=== PATIENT | male | born 1995 | race Caucasian/White ===

== ENCOUNTER 2021-04-12 08:48 | Emergency (ER) | payer BC ==
[~2021-04-12] VITALS: Ht 180.3 cm; Wt 61.0 kg
[2021-04-12] MEDS ORDERED: IBUPROFEN 600MG TABLET PO ONE (10:00)
[2021-04-12] MEDS ORDERED: LIDOCAINE 5% PATCH TOP SCH (10:00)
[2021-04-12 10:57] LABS: BASOPHILS % 0.4 % (0.0-2.0); EOSINOPHILS % 0.7 % (0.0-5.0); HEMATOCRIT. 46.7 % (42.0-52.0); HEMOGLOBIN. 16.1 g/dL (14.0-18.0); LYMPHOCYTES % 31.7 % (20.0-50.0); MEAN CORPUSCULAR HEMOGLOBIN 31.3 pg (28.0-32.0); MEAN CORPUSCULAR VOLUME 90.7 fL (80.0-94.0); MEAN PLATELET VOLUME 7.4 fl (7.4-10.4); MONOCYTES % 13.2 % (2.0-8.0); PLATELET 193 x1000/uL (130-400); RED BLOOD CELL COUNT 5.14 mill/uL (4.7-6.1); RED CELL DISTRIBUTION WIDTH 13.3 % (11.6-14.6)
[2021-04-12 11:04] LABS: CHLORIDE 108 mEq/L (98-107)
[2021-04-12] MEDS ORDERED: BACL-141 MT (11:31)
[2021-04-12] MEDS ORDERED: IBUP-2029 MT (11:31)
[2021-04-12 11:51] VITALS: BP 118/70
== END 2021-04-12 11:51 | disposition home or self-care (01) ==
LOC: ER 08:48
DX: R07.89 Other chest pain (principal); F41.9 Anxiety disorder, unspecified; J45.909 Unspecified asthma, uncomplicated; V49.49XA Driver injured in collision with other motor vehicles in traffic accident, initial encounter; Y93.89 Activity, other specified; Y92.89 Other specified places as the place of occurrence of the external cause; Y99.8 Other external cause status; Z98.890 Other specified postprocedural states
CPT/HCPCS: 36415; 71046; 80048; 83880; 84484; 85025; 93005; 99285